=== PATIENT | female | born 1930 | race Caucasian/White ===

== ENCOUNTER 2017-02-23 16:21 | Emergency (ER) | payer MEDICARE, OTHER ==
[~2017-02-23] VITALS: Ht 142.2 cm; Wt 63.5 kg
[~2017-02-23 16:21] MED LIST: ALBUTEROL2.5 MG/0.5 INH; AMOX TR-K CLV 875-12; ATARAX25 MG PO; ATIVAN0.5 MG PO; AUGMENTIN 500500 MG PO; AUGMENTIN 875 M1 TAB PO; B121000 MCG/1 IM; BACTRIM DS 8001 TA1 PO; BENADRYL25 M1 PO; CARDIZEM120 MG PO; CEFTIN250 MG PO; CEFUROXIME AXE250 MG PO; CEFUROXIME250 MG PO; CIPRO250 MG PO; CIPRO500 MG PO; CIPROFLOXACIN500 MG PO; CITRATE OF1.75 GM/30 PO; COUMADIN2 MG; COUMADIN4 MG; DEXTROMETHORPHAN PO; DIGOXIN; DIGOXIN0.125 MG PO; DILTIAZEM120 MG PO; DOXYCYCLINE100 M3 PO; DULCOLAX10 M1 RC; DUONEB 3 MG/3 ML3 M1 INH; DUONEB 3 MG/3 ML3 M1 NEB; EFFER-K20 MEQ PO; FERRATE325 MG PO; FIORICET 325 MG1 TAB PO; FLONASE0.05 MG/AC NS; Fleet Adult Enem1 EA R; HYCODAN/HYDROMET5 ML PO; HYDROCODONE BIT1 T11 PO; JANTOVEN2 MG PO; K-Dur 20MEQ20 MEQ PO; KENALOG 0.1% OI15 GM PO; LASIX40 MG PO; LEVAQUIN500 M1 PO; LEVOFLOXACIN500 MG PO; LIDEX0.05% T; LOPRESSOR50 MG PO; MACROBID100 M1 PO; MIRALAX POWDER255 G1 PO; MIRALAX17 GM/DOSE PO; MIRALAX17 GM/PACK PO; MOM30 ML PO; MUCINEX600 MG PO; Motrin,Rufen400 MG PO; NORCO 325 MG-101 TAB PO; NORCO 5-325 TA1 EACH PO; NYSTATIN CREAM15 GM T; POTASSIUM CHLO20 ME4 PO; POTASSIUM PO; POTASSIUM20 MEQ PO; PT DOESNT KNOW MEDS; SYNTHROID,LEV125 MCG PO; SYNTHROID0.1 MG PO; Synthroid,Lev125 MCG PO; THYROID; TYLENOL325 M1 PO; ULTRAM50 MG PO; VICODIN 5/500 505 MG PO; VICODIN ES 7501 TAB PO
[2017-02-23 16:32] VITALS: BP 118/78
== END 2017-02-23 18:17 | disposition home or self-care (01) ==
LOC: ED 16:21
DX: M17.11 Unilateral primary osteoarthritis, right knee (principal); Z79.899 Other long term (current) drug therapy; Z88.6 Allergy status to analgesic agent

== ENCOUNTER 2017-03-06 14:29 | Inpatient (IN) | payer MEDICARE, OTHER ==
[~2017-03-06] VITALS: Wt 61.2 kg
--- NOTE | ~2017-03-06 | CON ---
[place], [place] REPORT OF CONSULTATION NAME: TULIO KC UNIT #: [id number] ROOM: 530 DOCTOR: ZHANNA LAST MD BIRTHDATE: [birth year] DOS: 03/08/2017 PULMONARY CONSULTATION EVALUATION AND MANAGEMENT CONSULTATION REQUESTED BY: Dr. Thapa. REASON FOR CONSULTATION: For assessment of ongoing acute respiratory complaints as well as pneumonia. HISTORY OF PRESENT ILLNESS: This 86-year-old elderly female patient who has been brought to the Emergency Room and the patient has been noted symptoms of shortness of breath occurring for the past 3 days. The symptoms have been noted gradually progressive with increased fatigue as well. The patient stated symptoms started flu-like symptoms about a week or so and later on noted with symptoms of shortness of breath. She does have symptoms of cough, which has been noted mild and nonproductive. The patient denies symptoms of chest pain. Denies symptoms of hemoptysis. Denies any symptoms of active wheezing. REVIEW OF SYSTEMS: CONSTITUTIONAL: Fatigue and tiredness with low-grade fever noted from home. EYES: Denies any burning, redness, or tenderness. EARS, NOSE, AND THROAT: No sore throat, hoarseness, otalgia, postnasal drainage. CARDIOVASCULAR: Denies anginal pain, edema of the lower extremities or palpitation. GASTROINTESTINAL: Denies symptoms of gastrointestinal symptoms, dysphagia, nausea, vomiting, diarrhea, abdominal pain, hematemesis, melena, or hematochezia. SKIN: Denies any lesions or rashes. GENITOURINARY: Denies dysuria, suprapubic pain, hematuria. CENTRAL NERVOUS SYSTEM: Denies symptoms of diplopia, headache or seizures. Remaining systems were reviewed with the patient, they were noted all negative. PAST MEDICAL HISTORY: 1. Chronic atrial fibrillation, on anticoagulation. 2. Hypothyroidism. 3. Essential hypertension. 4. History of failure to thrive. 5. History of diverticulosis of the colon. SOCIAL HISTORY: The patient stated she is , lives at home and has 2 children. Denies history of tobacco, alcohol or illicit drug use. PAST SURGICAL HISTORY: Essentially noted none. FAMILY HISTORY: Reported for myocardial infarction and cancer. MEDICATIONS: The current administered medications noted use of Cardizem-CD, potassium chloride, MiraLax, Lasix, levothyroxine, Rocephin and Zithromax and [place], [place] REPORT OF CONSULTATION NAME: TULIO KC UNIT #: [id number] ROOM: [facility] DOCTOR: ZHANNA LAST MD BIRTHDATE: [birth year] other p.r.n. medications administration. DRUG ALLERGIES: The patient was noted as allergy to the tramadol. PHYSICAL EXAMINATION: GENERAL: This 86-year-old elderly female noted currently awake and alert without any distress. Height of 5 feet 3 inches, weight 135 pounds. VITAL SIGNS: Show temperature noted normal, respiratory rate ranging between 24-18, heart rate ranges between 74-85, blood pressure 120/85-111/62, pulse oxygen saturation was noted on room air as 94% saturation. HEAD: Atraumatic. Eyes, nonicterus. NECK: Supple. CARDIOVASCULAR: S1, S2 audible. LUNGS: Show mild to moderate decreased breaths are noted in the lungs bilaterally without any wheezing or crackles. ABDOMEN: Soft, flat, nontender. Bowel sounds present. EXTREMITIES: Show no edema, clubbing or cyanosis. CENTRAL NERVOUS SYSTEM: Cranial nerves 2-12 intact. No focal deficits. MUSCULOSKELETAL: Does not show an acute deformities. SKIN: Shows no lesions or rashes. LABORATORY DATA: CBC was done on 03/06/2017 noted normal CBC. PT/PTT on 03/06/2017 was noted as normal. CMP on 03/06/2017 was noted with normal BUN and creatinine. Potassium noted 2.6, which was significantly decreased. CBC, 03/07/2017, WBC count 3.8, remaining CBC normal. BMP on 03/07/2017 noted normal BUN and creatinine. Potassium increased to 3. CBC this morning: WBC count still noted 4.2, remaining CBC normal. BMP that was done this morning showed normal BUN and creatinine. Potassium today noted as mildly decreased as 3.0. The chest x-ray that was done in the Emergency Room, 1 view shows patchy area of infiltration, which appeared to be very faint in the right upper lung would be considered. Remaining lungs were noted essentially grossly clear. IMPRESSION: 1. The patient will be currently admitted to the hospital, suspected acute bacterial pneumonia, right upper lung with the addition of diagnosis to be considered as no pneumonia because of the patient's current infiltration as well. 2. Leukopenia, which has been noted consistent, may be related to current acute illness including possibility of viral syndrome would be considered. 3. Recent flu-like symptoms as well suggestive of viral infection as well. PLAN OF TREATMENT: CT scan of the chest has been ordered with IV contrast ____ detail assessment of the lung. Ordered the viral panel for this patient including influenza A and B, nasal washing antigens. Viral panel, nasopharyngeal washing will be obtained. Other supportive therapy, plan and management as in progress will be continued. Usual care. Other supportive therapy, plan of treatment. Thank you for allowing me to participate in the care of this patient. [place], [place] REPORT OF CONSULTATION NAME: TULIO KC UNIT #: [id number] ROOM: [facility] DOCTOR: ZHANNA LAST MD BIRTHDATE: [birth year] ZHANNA HERRERA MD CM:CONSTR:REPORT OF CONSULTATION 1206 03/08/17 1710 interface
--- NOTE | ~2017-03-06 | PR ---
[place], [place] PROGRESS NOTE NAME: TULIO KC UNIT #: [id number] ROOM: 530 DOCTOR: JUVENTINO NOGUERA MD BIRTHDATE: [birth year] DOS: 03/09/2017 SUBJECTIVE: The patient is alert, oriented, continues to feel better. OBJECTIVE: VITAL SIGNS: Blood pressure 130/88, heart rate of 60 beats per minute, afebrile. GENERAL: Generalized weakness. HEENT AND NECK: Exam within normal limits. CARDIOVASCULAR SYSTEM: Heart rate is regular in rate and rhythm. S1 and S2 normally audible. LUNGS: Clear to auscultation. ABDOMEN: Soft, nontender. No obvious organomegaly. Bowel sounds are present. EXTREMITIES: Without significant cyanosis or edema. IMPRESSION: 1. The patient adult failure to thrive and generalized weakness, overall improving. 2. Resolving tracheobronchitis with leukopenia, suspected to be secondary to viral etiology. Blood counts to be repeated as an outpatient. 3. A 1.8 cm opacity in the right upper lung, suspicious for slow growing malignancy, to be followed by Dr. Ulloa, the scheduling specialist, who saw her at the hospital. 4. Pneumonia in right upper lung, being treated with antibiotics, which will be continued at home. The patient will be discharged to home tomorrow morning to follow up with her PCP and also Dr. Ulloa as an outpatient. JUVENTINO NOGUERA MD CM:PNTRANS [phone] JUVENTINO NOGUERA MD 03/10/17210 interface
--- NOTE | ~2017-03-06 | PR ---
[place], [place] PROGRESS NOTE NAME: TULIO KC UNIT #: [id number] ROOM: 530 DOCTOR: ZHANNA LAST MD BIRTHDATE: [birth year] DOS: 03/09/2017 PULMONARY FOLLOWUP SUBJECTIVE: She has been noted quite comfortable with reduction of the respiratory complaints. She denies symptoms of chest pain or any abdominal pain. OBJECTIVE: VITAL SIGNS: Recorded shows the temperature noted normal, respiration 20, heart rate 71, blood pressure 134/88. Pulse oxygen saturation noted on room air 98% saturation. HEENT: Showed no acute change. NECK: Supple. CARDIOVASCULAR: S1, S2 is audible. LUNGS: Without any crackle, rhonchi or wheezing. ABDOMEN: Soft, nontender. LABORATORY DATA: CBC today: WBC count 4.4, remaining CBC was normal. BMP was normal. Influenza A and B washing antigens noted negative. The respiratory viral panel was ordered from the nasopharyngeal source which is pending. CT scan of the chest showed 1.8 cm ground glass opacity which has been present in the right upper lobe. IMPRESSION: Resolving tracheobronchitis with leukopenia, most likely viral etiology. A 1.8 cm ground glass opacity was noted in the right upper lung with differential diagnosis of possibility of slow growing malignancy, localized infection and other etiologies would be considered. PLAN OF TREATMENT: The patient could be considered for discharge at this time in the home setting with oral antibiotic. Outpatient followup was discussed with ground glass opacity need to be done for the patient who persists with PET scan and further assessment would be advised accordingly. In the meantime, continue the patient's current therapy, plan of management, care and treatments. [place], [place] PROGRESS NOTE NAME: TULIO KC UNIT #: [id number] ROOM: 530 DOCTOR: ZHANNA LAST MD BIRTHDATE: [birth year] ZHANNA HERRERA MD CM:PNTRANS [id number] ZHANNA WHITNEY MD 03/09/17 1249 interface
--- NOTE | ~2017-03-06 | PR ---
[place], [place] PROGRESS NOTE NAME: TULIO KC UNIT #: [id number] ROOM: 530 DOCTOR: JAVIER WHITNEY MD,ZHANNA BIRTHDATE: [birth year] DOS: 03/10/2017 SUBJECTIVE: She has been noted comfortable at this time without any distress. The coughing has been subsiding gradually. There were no symptoms of chest pain or any abdominal pain. OBJECTIVE: VITAL SIGNS: Showed normal temperature, respiratory rate 20, heart rate 58, blood pressure 126/92. Pulse oxygen saturation noted as 98% on room air. HEENT: Showed no acute change. NECK: Supple. CARDIOVASCULAR: S1, S2 is audible. LUNGS: The patient was noted without any wheezing or crackles. ABDOMEN: Soft, nontender. EXTREMITIES: Shows no edema. LABORATORY DATA: Respiratory luaren, the culture is noted positive for rhinovirus. IMPRESSION: The patient has been noted solitary pulmonary nodule in the patient's right upper lung. The patient with leukopenia with acute viral infection and bronchitis with rhinovirus. PLAN OF TREATMENT: The patient will be discharged home on oral medication whenever desired. No intervention. ____ rhinovirus as this has not been able to be treated with any antibiotic therapy. Supportive care to be continued. ZHANNA HERRERA MD CM:PNTRANS [id number] ZHANNA WHITNEY MD 03/10/17 1205 interface
--- NOTE | ~2017-03-06 | PR ---
[place], [place] PROGRESS NOTE NAME: TULIO KC UNIT #: [id number] ROOM: 530 DOCTOR: JUVENTINO NOGUERA MD BIRTHDATE: [birth year] DOS: 03/08/2017 SUBJECTIVE: The patient is starting to feel better with treatment. OBJECTIVE: VITAL SIGNS: Blood pressure 120/89, heart rate 74 beats per minute, breathing 20 times per minute, temperature 98 degrees Fahrenheit. GENERAL APPEARANCE: The patient is alert and oriented x 3, in no visible distress. Has generalized weakness. HEENT AND NECK: Exam within normal limits. CARDIOVASCULAR SYSTEM: Heart rate is regular in rate and rhythm. S1 and S2 normally audible. LUNGS: Clear to auscultation. ABDOMEN: Soft, nontender. No obvious organomegaly. Bowel sounds are present. EXTREMITIES: Without significant cyanosis or edema. IMPRESSION: 1. The patient with right upper lung pneumonia and consolidation for which Dr. Ulloa has been consulted and she is being treated with antibiotics. The patient is feeling better. CT of the chest showed ground glass opacity in inner segment of the right upper lung measuring 1.8 cm concerning for malignancy. 2. Right upper lung mass, possibility of malignancy. Dr. Ulloa to follow. 3. Old age, generalized weakness, adult failure to thrive. We are taking bedsore precautions and fall precautions. 4. Benign essential hypertension with controlled blood pressures with treatment. 5. Hypothyroidism. The patient kept on thyroid supplements. 6. Persistent hypokalemia for which the patient is being treated with extra potassium supplements. JUVENTINO NOGUERA MD CM:PNTRANS [id number] JUVENTINO NOGUERA MD 03/09/17 0028 interface
--- NOTE | ~2017-03-06 | DS ---
[place], [place] DISCHARGE SUMMARY NAME: TULIO KC [facility] #: [id number] UNIT #: [id number] ROOM: 530 DOCTOR: JUVENTINO NOGUERA MD BIRTHDATE: [birth year] DOS: 03/10/2017 DISCHARGE DIAGNOSES: 1. The patient with tracheobronchitis and leukopenia, possibly from viral etiology. 2. Right upper lung mass, measuring 1.8 cm, to be followed by Dr. Ulloa, suspicious for slow growing malignancy. 3. Right upper lung pneumonia, treated with antibiotics. 4. Chronic atrial fibrillation. The patient is not a good candidate for anticoagulation. 5. Hypothyroidism. 6. Benign essential hypertension. 7. Old age and failure to thrive. 8. Diverticulosis of the colon. HOSPITAL COURSE: 1. The patient presented to the Emergency Department with a 3-day complaints of increasing shortness of breath, slight fever and flu-like symptoms. The patient was found to have a suspicious mass in the right upper lung measuring 1.[address] Ulloa, the sales representative printing supplies was consulted and he has cleared the patient for discharge after treatment with antibiotics because she is breathing very well. Dr. Ulloa will continue to follow her and see if this mass-like infiltrate resolves with antibiotics or if needs further investigation. Because of the patient's age and overall poor health, the patient is not a very good candidate for any major treatment. 2. Chronic atrial fibrillation with controlled heart rates. The patient is not anticoagulated because she is not a good candidate for anticoagulation related to recurrent falls and generalized disability. Dr. Sheriff Sanchez is her PCP. 3. Old age, generalized weakness and adult failure to thrive. The patient worked with physical therapy. 4. Benign essential hypertension. Blood pressure has been monitored and treated. 5. Hypothyroidism. The patient was continued on thyroid supplements. 6. Hypokalemia, was treated with extra potassium supplements. 7. Neutropenia, probably secondary to viral infection. Blood counts need to be repeated as an outpatient, white cell count of 4400. LABORATORY DATA: Normal serum electrolytes except for potassium of 3.3 for which the patient was given extra potassium. Blood cultures were negative. DISCHARGE MANAGEMENT: Diltiazem CD 120 mg a day, potassium bicarbonate 25 mEq daily, MiraLax 17 grams a day, furosemide 40 mg a day, levothyroxine 125 mcg a day, Augmentin 875 mg twice a day for a week. Follow up in the office with Dr. Sanchez next week. Vicodin p.r.n., lorazepam 0.25 mg at bedtime. [place], [place] DISCHARGE SUMMARY NAME: TULIO KC UNIT #: [id number] ROOM: [facility] DOCTOR: JUVENTINO NOGUERA MD BIRTHDATE: [birth year] JUVENTINO NOGUERA MD CM:ROB [id number] 1302 JUVENTINO NOGUERA MD 03/10/17 1301 interface
--- NOTE | ~2017-03-06 | WRIGHTHP ---
[place], [place] PATIENT HISTORY AND PHYSICAL EXAM NAME: TULIO KC [facility] #: [id number] UNIT #: [id number] ROOM: 530 DOCTOR: JUVENTINO NOGUERA MD BIRTHDATE: [birth year] DOS: 03/07/2017 HISTORY OF PRESENT ILLNESS: 1. The patient is an 86-year-old female with a past medical history of chronic atrial fibrillation. The patient is not a good candidate for anticoagulation. 2. Hypothyroidism. 3. Benign essential hypertension. 4. Old age and failure to thrive. 5. History of diverticulosis of colon. The patient presented to the Emergency Department with more than 3-day complaints of increasing shortness of breath, feeling weaker and slight fever. The patient had cold and flu-like symptoms last week. The patient had some decreased appetite and slight cough. No chest pains. The patient was found to have pneumonia and hypokalemia and recommended for admission for further management. After admission, the patient is starting to feel somewhat better. REVIEW OF SYSTEMS: LUNGS: Increasing shortness of breath, slight cough. CARDIOVASCULAR SYSTEM: No chest pains or palpitations. GASTROINTESTINAL: No nausea, vomiting, diarrhea, constipation. FAMILY HISTORY: Noncontributory. HOME MEDICATIONS: Diltiazem, potassium, MiraLax, furosemide, levothyroxine, lorazepam, and Vicodin. ALLERGIES: TRAMADOL. PHYSICAL EXAMINATION: GENERAL: Alert and oriented x 3. Generally weak, but in no visible distress. Generalized weakness. VITAL SIGNS: Blood pressure 103/78, heart rate 67 beats per minute, breathing 18 times per minute, temperature of 98.1 degrees Fahrenheit. HEENT AND NECK: Extraocular movements are intact. Sclerae are anicteric. Oral mucosa is moist and clean. No obvious facial weakness. Neck is supple without any lymphadenopathy. No thyromegaly. No JVD. No carotid arterial bruits. LUNGS: Clear to auscultation. No wheezing. No rhonchi. Decreased breath sounds at the bases. CARDIOVASCULAR SYSTEM: Heart rate is regular in rate and rhythm. S1 and S2 normally audible. No significant murmur or any other abnormal cardiac sounds. ABDOMEN: Soft, nontender. No obvious organomegaly. Bowel sounds are present. No obvious herniation. EXTREMITIES: Without significant cyanosis or edema. Warm to touch. CENTRAL NERVOUS SYSTEM: Alert and oriented x 3. Cranial nerves II-XII are intact. Speech is normal. The patient is able to move all extremities. Normal muscle strength. Deep tendon reflexes are equal on both sides. Plantars were downgoing. LABORATORY DATA: Normal serum electrolytes except for potassium level of 3. [place], [place] PATIENT HISTORY AND PHYSICAL EXAM NAME: TULIO KC UNIT #: [id number] ROOM: [facility] DOCTOR: JUVENTINO NOGUERA MD BIRTHDATE: [birth year] Normal CBC except for slight left shift. Chest x-ray showing a right apical opacity and pneumonia. IMPRESSION: 1. The patient presenting with right upper lung pneumonia. We will also get a CT scan of the chest for further evaluation and consult international exchange coordinator, Dr. Ulloa. The patient has shortness of breath and weakness, so she was admitted and is being treated with IV antibiotics. 2. Old age, generalized weakness and adult failure to thrive. We are taking bedsore precautions, fall precautions and the patient to work with physical therapy. 3. Benign essential hypertension. We will monitor blood pressures and treat accordingly. 4. Hypothyroidism. I will keep her on thyroid supplements. 5. Hypokalemia, to be treated with extra potassium supplements and followed with serum electrolytes. JUVENTINO NOGUERA MD CM:HISPHYS:PATIENT HISTORY AND PHYSICAL EXAMINATION 06 24 JUVENTINO NOGUERA MD 03/07/17 0317 interface
[2017-03-06 14:37] VITALS: BP 128/84
[2017-03-06 15:52] LABS: BASO % 0.5 % (0.0-1.0); EOS # 0.1 10*3/uL (0.0-0.4); EOS % 1.8 % (1.0-4.0); HEMATOCRIT 45.7 % (37.0-47.0); LYMPH # 0.8 10*3/uL (1.3-4.4); LYMPH % 12.8 % (27.0-41.0); MEAN CELL VOLUME 90.7 fl (81.0-99.0); MEAN CORPUSCULAR HGB 29.8 pg (27.0-31.0); MEAN CORPUSCULAR HGB CONC 32.8 g/dl (33.0-37.0); MEAN PLATELET VOLUME 11.5 fl (9.6-12.3); MONO # 0.2 10*3/uL (0.1-1.0); NEUT # 4.8 10*3/uL (2.3-7.9); NEUT % 80.7 % (47.0-73.0); PLATELET COUNT AUTOMATED 166 10*3/uL (130-400); RED BLOOD COUNT 5.04 10*6/uL (4.10-5.10); RED CELL DISTRI WIDTH 14.5 % (0-14.5)
[2017-03-06 16:03] LABS: PROTHROMBIN TIME 10.8 SECONDS (9.0-12.4)
[2017-03-06 16:07] LABS: ALBUMIN 3.4 gm/dl (3.1-4.5); ALKALINE PHOSPHATASE 81 U/L (45-117); BILIRUBIN, TOTAL 1.6 mg/dl (0.2-1.0); BUN 4 mg/dl (7-24); C-REACTIVE PROTEIN 0.81 MG/DL (0-0.3); CARBON DIOXIDE 28 mmol/L (21-32); CHLORIDE 102 mmol/L (98-107); CKMB 0.7 ng/ml (0.5-3.6); CPK 37 U/L (26-192); EST GLOM FILT AFRICAN AMERICAN > 60 ml/min; GLUCOSE 96 mg/dL (65-99); MAGNESIUM 2.1 mg/dL (1.5-2.1); POTASSIUM 2.7 mmol/L (3.5-5.1); SGOT/AST 10 IU/L (3-35); SGPT/ALT 9 U/L (12-78); SODIUM 142 mmol/L (136-145); TOTAL PROTEIN 7.2 gm/dL (6.4-8.2)
[2017-03-06 16:10] LABS: TROPONIN I < 0.015 ng/ml (<0.045)
[2017-03-06 20:00] VITALS: BP 132/80
[2017-03-07] VITALS: BP 114/76
[2017-03-07 04:00] VITALS: BP 120/78
[2017-03-07 06:01] LABS: BASO % 0.5 % (0.0-1.0); EOS # 0.2 10*3/uL (0.0-0.4); EOS % 4.5 % (1.0-4.0); LYMPH # 1.1 10*3/uL (1.3-4.4); LYMPH % 27.7 % (27.0-41.0); MEAN CELL VOLUME 90.8 fl (81.0-99.0); MEAN CORPUSCULAR HGB 28.9 pg (27.0-31.0); MEAN CORPUSCULAR HGB CONC 31.9 g/dl (33.0-37.0); MEAN PLATELET VOLUME 10.5 fl (9.6-12.3); MONO # 0.3 10*3/uL (0.1-1.0); MONO % 8.7 % (3.0-9.0); NEUT # 2.2 10*3/uL (2.3-7.9); NEUT % 58.3 % (47.0-73.0); PLATELET COUNT AUTOMATED 162 10*3/uL (130-400); RED BLOOD COUNT 4.25 10*6/uL (4.10-5.10); RED CELL DISTRI WIDTH 14.2 % (0-14.5); WHITE BLOOD COUNT 3.8 10*3/uL (4.8-10.8)
[2017-03-07 06:13] LABS: HEMATOCRIT 38.6 % (37.0-47.0); HEMOGLOBIN 12.3 g/dl (12.0-16.0)
[2017-03-07 06:22] LABS: BUN 7 mg/dl (7-24); CARBON DIOXIDE 31 mmol/L (21-32); CHLORIDE 104 mmol/L (98-107); EST GLOM FILT AFRICAN AMERICAN > 60 ml/min; GLUCOSE 82 mg/dL (65-99); SODIUM 142 mmol/L (136-145)
[2017-03-07 08:00] VITALS: BP 120/80
[2017-03-07 16:00] VITALS: BP 103/78
[2017-03-08] VITALS: BP 111/62
[2017-03-08 07:35] LABS: BASO % 0.7 % (0.0-1.0); EOS # 0.1 10*3/uL (0.0-0.4); EOS % 3.4 % (1.0-4.0); HEMOGLOBIN 12.9 g/dl (12.0-16.0); LYMPH # 1.5 10*3/uL (1.3-4.4); LYMPH % 35.3 % (27.0-41.0); MEAN CELL VOLUME 90.3 fl (81.0-99.0); MEAN CORPUSCULAR HGB 29.1 pg (27.0-31.0); MEAN CORPUSCULAR HGB CONC 32.3 g/dl (33.0-37.0); MEAN PLATELET VOLUME 10.7 fl (9.6-12.3); MONO # 0.3 10*3/uL (0.1-1.0); MONO % 6.5 % (3.0-9.0); NEUT # 2.3 10*3/uL (2.3-7.9); NEUT % 53.9 % (47.0-73.0); PLATELET COUNT AUTOMATED 167 10*3/uL (130-400); RED BLOOD COUNT 4.43 10*6/uL (4.10-5.10); RED CELL DISTRI WIDTH 14.4 % (0-14.5); WHITE BLOOD COUNT 4.2 10*3/uL (4.8-10.8)
[2017-03-08 07:48] LABS: BUN 10 mg/dl (7-24); CARBON DIOXIDE 27 mmol/L (21-32); CHLORIDE 106 mmol/L (98-107); EST GLOM FILT AFRICAN AMERICAN > 60 ml/min; GLUCOSE 91 mg/dL (65-99); SODIUM 143 mmol/L (136-145)
[2017-03-08 08:00] VITALS: BP 120/89
[2017-03-08 16:00] VITALS: BP 95/53
[2017-03-08 20:43] VITALS: BP 104/60
[2017-03-09] VITALS: BP 107/72
[2017-03-09 04:00] VITALS: BP 112/84
[2017-03-09 06:50] LABS: BASO % 0.7 % (0.0-1.0); EOS # 0.1 10*3/uL (0.0-0.4); HEMATOCRIT 41.1 % (37.0-47.0); HEMOGLOBIN 13.3 g/dl (12.0-16.0); LYMPH # 1.3 10*3/uL (1.3-4.4); LYMPH % 28.9 % (27.0-41.0); MEAN CELL VOLUME 91.7 fl (81.0-99.0); MEAN CORPUSCULAR HGB 29.7 pg (27.0-31.0); MEAN CORPUSCULAR HGB CONC 32.4 g/dl (33.0-37.0); MEAN PLATELET VOLUME 10.5 fl (9.6-12.3); MONO # 0.3 10*3/uL (0.1-1.0); MONO % 5.7 % (3.0-9.0); NEUT # 2.7 10*3/uL (2.3-7.9); NEUT % 61.2 % (47.0-73.0); PLATELET COUNT AUTOMATED 195 10*3/uL (130-400); RED BLOOD COUNT 4.48 10*6/uL (4.10-5.10); RED CELL DISTRI WIDTH 14.4 % (0-14.5); WHITE BLOOD COUNT 4.4 10*3/uL (4.8-10.8)
[2017-03-09 07:24] LABS: BUN 11 mg/dl (7-24); CARBON DIOXIDE 29 mmol/L (21-32); CHLORIDE 105 mmol/L (98-107); EST GLOM FILT AFRICAN AMERICAN > 60 ml/min; GLUCOSE 91 mg/dL (65-99); POTASSIUM 3.3 mmol/L (3.5-5.1); SODIUM 145 mmol/L (136-145)
[2017-03-09 08:41] VITALS: BP 134/88
[2017-03-09 16:00] VITALS: BP 95/60
[2017-03-10] VITALS: BP 111/82
[2017-03-10 00:03] LABS: INFLUENZA B Negative (Negative); METAPNEUMOVIRUS Negative (Negative)
[2017-03-10 08:00] VITALS: BP 126/92
[2017-03-10] MEDS ORDERED: AUGMENTIN 875-875 MG PO (10:19)
== END 2017-03-10 10:59 | disposition home or self-care (01) | DRG 194 ==
LOC: ED 14:29 → 5E 16:36 → EDHOLD 16:36 → 5E 16:46
PROVIDERS: Emergency Medicine; Internal Medicine; Internal Medicine Critical Care Medicine
DX: J18.1 Lobar pneumonia, unspecified organism (principal); C34.11 Malignant neoplasm of upper lobe, right bronchus or lung; I48.2 Chronic atrial fibrillation; E44.1 Mild protein-calorie malnutrition; D72.819 Decreased white blood cell count, unspecified; I10 Essential (primary) hypertension; E87.6 Hypokalemia; J40 Bronchitis, not specified as acute or chronic; W19.XXXA Unspecified fall, initial encounter; Z66 Do not resuscitate; Z51.5 Encounter for palliative care; R91.8 Other nonspecific abnormal finding of lung field; B34.8 Other viral infections of unspecified site; E03.9 Hypothyroidism, unspecified; R62.7 Adult failure to thrive; K57.30 Diverticulosis of large intestine without perforation or abscess without bleeding; Z79.899 Other long term (current) drug therapy; Z88.6 Allergy status to analgesic agent; Y93.89 Activity, other specified; Y92.89 Other specified places as the place of occurrence of the external cause; Y99.8 Other external cause status

== ENCOUNTER 2017-04-17 17:16 | Emergency (ER) | payer MEDICARE ==
[~2017-04-17] VITALS: Ht 144.7 cm; Wt 63.5 kg
[~2017-04-17 17:16] MED LIST changes: +AUGMENTIN 875-875 MG PO
[2017-04-17 17:22] VITALS: BP 140/86
[2017-04-17 19:22] LABS: BILIRUBIN NEGATIVE (NEGATIVE); BLOOD 1+ (NEGATIVE); CLARITY SL CLOUDY (CLEAR); COLOR YELLOW (YELLOW); GLUCOSE NEGATIVE (NEGATIVE); KETONE NEGATIVE (NEGATIVE); LEUKO ESTERASE 3+ (NEGATIVE); NITRITE POSITIVE (NEGATIVE); PROTEIN NEGATIVE (NEGATIVE); SPECIFIC GRAVITY <= 1.005 (1.005-1.030)
[2017-04-17 19:29] LABS: BACTERIA 3+; URINE REFLEX COMMENT YES (NO); WBC 21-30 wbc/hpf (0-5)
[2017-04-17] MEDS ORDERED: CIPRO500 MG PO (19:59)
[2017-04-17] MEDS ORDERED: PYRIDIUM100 MG PO (19:59)
== END 2017-04-17 20:14 | disposition home or self-care (01) ==
LOC: ED 17:16
PROVIDERS: Nurse Practitioner Family
DX: S60.031A Contusion of right middle finger without damage to nail, initial encounter (principal); N30.01 Acute cystitis with hematuria; Z88.6 Allergy status to analgesic agent; Z79.899 Other long term (current) drug therapy; X58.XXXA Exposure to other specified factors, initial encounter; Y93.9 Activity, unspecified; Y92.9 Unspecified place or not applicable; Y99.9 Unspecified external cause status

== ENCOUNTER 2017-05-30 11:32 | Inpatient (IN) | payer MEDICARE ==
--- NOTE | ~2017-05-30 | WRIGHTHP ---
[place], [place] PATIENT HISTORY AND PHYSICAL EXAM [id number] UNIT #: [id number] ROOM: 531 DOCTOR: JUVENTINO NOGUERA MD BIRTHDATE: [birth year] DOS: 05/30/2017 HISTORY OF PRESENT ILLNESS: 1. The patient is an 86-year-old female with a past medical history of right upper lung mass suspicious of malignancy and slowly growing, chronic atrial fibrillation. The patient is not a good candidate for anticoagulation. 2. Hypothyroidism. 3. Benign essential hypertension. 4. Old age and failure to thrive. 5. History of diverticulosis of the colon. The patient presented to the emergency department with increasing lower back pains and was found to have urinary tract infection. The patient's family who take care of her at home said that she needs custodial placement because of her advanced disability. No chest pain, no increasing shortness of breath. The patient had been having increasing lower back pains and burning in the urine. There were a couple of days, feeling even weaker. SYSTEMS REVIEW: LUNGS: No increasing shortness of breath or wheezing. GASTROINTESTINAL: No nausea, vomiting, diarrhea, or constipation. CARDIOVASCULAR: No chest pains or palpitations. FAMILY HISTORY: Noncontributory. MEDICATIONS: Potassium chloride, MiraLax, furosemide, levothyroxine, lorazepam, and Vicodin. PHYSICAL EXAMINATION: GENERAL APPEARANCE: The patient is alert and oriented x 3, in no visible distress, very weak. VITAL SIGNS: Blood pressure 134/92, heart rate 83 beats per minute, breathing 18 times per minute, temperature of 98.4 degrees Fahrenheit. HEENT AND NECK: Extraocular movements are intact. Sclerae are anicteric. Oral mucosa is moist and clean. No obvious facial weakness. Neck is supple without any lymphadenopathy. No thyromegaly. No JVD. No carotid arterial bruits. LUNGS: Clear to auscultation. No wheezing. No rhonchi. CARDIOVASCULAR SYSTEM: Heart rate is regular in rate and rhythm. S1 and S2 normally audible. No significant murmur or any other abnormal cardiac sounds. ABDOMEN: Soft, nontender. No obvious organomegaly. Bowel sounds are present. No obvious herniation. EXTREMITIES: Without significant cyanosis or edema. Warm to touch. CENTRAL NERVOUS SYSTEM: Alert and oriented x 3. Cranial nerves II-XII are intact. Speech is normal. The patient is able to move all extremities. Normal muscle strength. Deep tendon reflexes are equal on both sides. Plantars were downgoing. Otherwise, lab data, x-rays of the lumbar spine without any acute abnormality or x-ray of the thoracic spine without any acute abnormality. CT of the head without any hemorrhage. Normal serum electrolytes, except for potassium level [place], [place] PATIENT HISTORY AND PHYSICAL EXAM NAME: TULIO KC UNIT #: [id number] ROOM: 531 DOCTOR: JUVENTINO NOGUERA MD BIRTHDATE: [birth year] low at 3.1. No leukocytosis. IMPRESSION: 1. The patient with urinary tract infection and cystitis, to be treated with Rocephin and white cell counts to be repeated. The patient had symptoms of urinary tract infection with urinary burning and lower back pains. 2. Advanced disability and old age and failure to thrive. The patient recommended jail facility placement and pediatric social worker and case management have been consulted. 3. Hypothyroidism. The patient remains on levothyroxine. 4. Chronic atrial fibrillation with controlled heart rates. The patient is not a good candidate for anticoagulation. 5. 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 The patient is not a good candidate for intervention. Dr. Ulloa, the typo machine operator has evaluated her in the past. 6. Advanced disability. I will start the patient on bedsore precautions every 2-hour turning and also physical therapy. JUVENTINO NOGUERA MD CM:HISPHYS:PATIENT HISTORY AND PHYSICAL EXAMINATION 1701 0005 JUVENTINO NOGUERA MD 05/31/17 0005 interface
--- NOTE | ~2017-05-30 | EKG ---
[place], [place] ELECTROCARDIOGRAM REPORT NAME: TULIO KC UNIT #: [id number] ROOM: 531 DOCTOR: JAVIER WHITNEY MD,ZHANNA BIRTHDATE: [birth year] DOS: 05/31/2017 ELECTROCARDIOGRAM The electrocardiogram done 05/30/2017 at 1241 p.m. Underlying rhythm was noted as atrial fibrillation with heart rate to 83 beats per minute. Some APC for the patient was noted with electrocardiogram with nonspecific ST-T changes. ZHANNA HERRERA MD CM:EKGRPT:ELECTROCARDIOGRAM REPORT 1213 1239 ZHANNA WHITNEY MD
--- NOTE | ~2017-05-30 | DS ---
[place], [place] DISCHARGE SUMMARY [id number] UN[facility] #: [id number] ROOM: 531 DOCTOR: JUVENTINO NOGUERA MD BIRTHDATE: [birth year] DOS: 06/02/2017 DISCHARGE DIAGNOSES: 1. The patient with urinary tract infection and cystitis with urine culture growing Escherichia coli to be treated with Augmentin. 2. Old age, generalized weakness and disability. The patient to work with physical therapy. 3. Hypothyroidism. 4. Chronic atrial fibrillation. The patient is not a good candidate for anticoagulation. 5. 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 Ulloa, the reliability specialist in the past. 6. Advanced disability and adult failure to thrive. 7. History of diverticulosis of the colon. HISTORY AND HOSPITAL COURSE: 1. The patient admitted with increased weakness, difficulty with ambulation, lower back pains and she was found to have urinary tract infection and cystitis. The patient grew E. coli in the urine cultures which were treated with antibiotics and she will be continued on Augmentin at residential facility where she can be discharged. 2. Hypothyroidism, treated with thyroid supplements. 3. Adult failure to thrive and generalized weakness. The patient is working with physical therapy. 4. Chronic constipation, treated with MiraLax. 5. Generalized anxiety disorder and chronic lower back pains treated with lorazepam and Vicodin, which helped the function better. Now, she will be treated with ibuprofen and Tylenol as needed. 6. Right upper lung mass evaluated by Dr. Ulloa. Apparently, the patient is not a good candidate for further treatment and she does not want any more treatment for this. LABORATORY DATA: Urine culture is positive for resistant E. coli, which is sensitive to Augmentin, normal serum electrolytes and CBC. DISCHARGE MANAGEMENT: Augmentin 875 mg twice a day for 1 week, potassium bicarbonate 25 mEq daily, MiraLax 17 grams daily, furosemide 40 mg daily, Cardizem CD 120 mg daily, levothyroxine 125 mcg daily, lorazepam 0.5 mg at bedtime p.r.n., Vicodin 5/325 mg b.i.d. p.r.n. for pain. Give Tylenol 1000 mg every 8 hours and ibuprofen 600 mg every 8 hours p.r.n. for pain, oxygen titrate to keep a pulse ox 90-96% as needed p.r.n. and DuoNeb t.i.d. p.r.n. for shortness of breath. Consult physical therapy. [place], [place] DISCHARGE SUMMARY NAME: TULIO KC UNIT #: [id number] ROOM: 531 DOCTOR: JUVENTINO NOGUERA MD BIRTHDATE: [birth year] JUVENTINO NOGUERA MD CM:ROB [id number] JUVENTINO NOGUERA MD 06/01/17 1108 interface
--- NOTE | ~2017-05-30 | PR ---
[place], [place] PROGRESS NOTE NAME: TULIO KC UNIT #: [id number] ROOM: 531 DOCTOR: JUVENTINO NOGUERA MD BIRTHDATE: [birth year] DOS: 05/30/2017 SUBJECTIVE: The patient is breathing better and waiting to complete 3 days to go to longterm facility for continued treatment. OBJECTIVE: GENERAL APPEARANCE: The patient is alert and oriented x 3, in no visible distress, generalized weakness. VITAL SIGNS: Blood pressure 112/76, heart rate of 79 beats per minute, breathing 20 times per minute, temperature 98.2 degrees Fahrenheit. HEENT AND NECK: Exam within normal limits. CARDIOVASCULAR SYSTEM: Heart rate is regular in rate and rhythm. S1 and S2 normally audible. LUNGS: Clear to auscultation. ABDOMEN: Soft, nontender. No obvious organomegaly. Bowel sounds are present. EXTREMITIES: Without significant cyanosis or edema. IMPRESSION: 1. Urinary tract infection and cystitis with urine cultures growing heavy gram-negative bacilli and she had lower back pains related to this which are improving. No leukocytosis. 2. Old age, generalized weakness and disability and ambulatory dysfunction. The patient waiting for longterm facility transfer. 3. Hypothyroidism, ____ with levothyroxine. 4. Chronic atrial fibrillation with controlled heart rates. The patient is not a good candidate for anticoagulation. 5. 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 Ulloa, the cryptologic support specialist. 6. Advanced disability and failure to thrive. We are taking bedsore precautions. JUVENTINO NOGUERA MD CM:PNTRANS 99 01 JUVENTINO NOGUERA MD [id number]/31/[id number] interface
[~2017-05-30 11:32] MED LIST changes: +PYRIDIUM100 MG PO
[2017-05-30 11:45] VITALS: BP 102/72
[2017-05-30 12:33] LABS: BASO # 0.1 10*3/uL (0.0-0.1); EOS # 0.1 10*3/uL (0.0-0.4); EOS % 1.4 % (1.0-4.0); HEMATOCRIT 43.2 % (37.0-47.0); HEMOGLOBIN 14.2 g/dl (12.0-16.0); LYMPH # 1.1 10*3/uL (1.3-4.4); LYMPH % 20.9 % (27.0-41.0); MEAN CELL VOLUME 91.7 fl (81.0-99.0); MEAN CORPUSCULAR HGB 30.1 pg (27.0-31.0); MEAN CORPUSCULAR HGB CONC 32.9 g/dl (33.0-37.0); MEAN PLATELET VOLUME 9.9 fl (9.6-12.3); MONO # 0.3 10*3/uL (0.1-1.0); MONO % 5.2 % (3.0-9.0); NEUT # 3.7 10*3/uL (2.3-7.9); NEUT % 71.1 % (47.0-73.0); PLATELET COUNT AUTOMATED 224 10*3/uL (130-400); RED BLOOD COUNT 4.71 10*6/uL (4.10-5.10); RED CELL DISTRI WIDTH 13.9 % (0-14.5); WHITE BLOOD COUNT 5.2 10*3/uL (4.8-10.8)
[2017-05-30 12:48] LABS: ALBUMIN 3.2 gm/dl (3.1-4.5); ALKALINE PHOSPHATASE 73 U/L (45-117); BUN 7 mg/dl (7-24); CHLORIDE 104 mmol/L (98-107); CPK 38 U/L (26-192); CREATININE 0.68 mg/dL (0.55-1.02); MAGNESIUM 2.4 mg/dL (1.5-2.1); POTASSIUM 3.1 mmol/L (3.5-5.1); SGOT/AST 9 IU/L (3-35); SGPT/ALT 10 U/L (12-78); SODIUM 141 mmol/L (136-145); TOTAL PROTEIN 6.9 gm/dL (6.4-8.2)
[2017-05-30 12:52] LABS: CKMB < 0.5 ng/ml (0.5-3.6); TROPONIN I < 0.015 ng/ml (<0.045)
[2017-05-30 13:07] LABS: BILIRUBIN NEGATIVE (NEGATIVE); BLOOD NEGATIVE (NEGATIVE); CLARITY CLOUDY (CLEAR); COLOR YELLOW (YELLOW); GLUCOSE NEGATIVE (NEGATIVE); KETONE NEGATIVE (NEGATIVE); LEUKO ESTERASE 3+ (NEGATIVE); NITRITE NEGATIVE (NEGATIVE); PH 8.5 (5.0-9.0)
[2017-05-30 13:31] LABS: BACTERIA 3+; WBC 16-20 wbc/hpf (0-5)
[2017-05-30 14:30] VITALS: BP 134/92
[2017-05-30 14:50] VITALS: BP 134/92
[2017-05-30 16:00] VITALS: BP 139/94
[2017-05-30 20:00] VITALS: BP 107/61
[2017-05-31] VITALS: BP 139/87
[2017-05-31 05:58] LABS: BASO % 0.7 % (0.0-1.0); EOS # 0.1 10*3/uL (0.0-0.4); EOS % 1.5 % (1.0-4.0); HEMATOCRIT 40.5 % (37.0-47.0); LYMPH # 1.5 10*3/uL (1.3-4.4); LYMPH % 25.9 % (27.0-41.0); MEAN CELL VOLUME 92.3 fl (81.0-99.0); MEAN CORPUSCULAR HGB 29.6 pg (27.0-31.0); MEAN CORPUSCULAR HGB CONC 32.1 g/dl (33.0-37.0); MEAN PLATELET VOLUME 10.3 fl (9.6-12.3); MONO # 0.4 10*3/uL (0.1-1.0); MONO % 6.7 % (3.0-9.0); NEUT # 3.8 10*3/uL (2.3-7.9); NEUT % 64.9 % (47.0-73.0); PLATELET COUNT AUTOMATED 205 10*3/uL (130-400); RED BLOOD COUNT 4.39 10*6/uL (4.10-5.10); RED CELL DISTRI WIDTH 13.9 % (0-14.5); WHITE BLOOD COUNT 5.8 10*3/uL (4.8-10.8)
[2017-05-31 06:30] LABS: BUN 10 mg/dl (7-24); CHLORIDE 106 mmol/L (98-107); CREATININE 0.72 mg/dL (0.55-1.02); POTASSIUM 3.6 mmol/L (3.5-5.1); SODIUM 143 mmol/L (136-145)
[2017-05-31 08:00] VITALS: BP 112/76; BP 139/87
[2017-05-31 16:00] VITALS: BP 102/62; BP 120/75
[2017-05-31 20:00] VITALS: BP 91/51
[2017-06-01] VITALS: BP 90/51
[2017-06-01 08:00] VITALS: BP 98/70
[2017-06-01] MEDS ORDERED: AUGMENTIN 875-875 MG PO (09:22)
[2017-06-01 12:00] VITALS: BP 100/67
[2017-06-01 16:00] VITALS: BP 107/66; BP 156/83
[2017-06-02] VITALS: BP 128/79
[2017-06-02 08:00] VITALS: BP 100/68
== END 2017-06-02 11:22 | disposition other institution (70) | DRG 690 ==
LOC: ED 11:32 → 5E 13:53 → EDHOLD 13:53 → 5E 14:01
PROVIDERS: Internal Medicine; ADMIT Internal Medicine
DX: N30.90 Cystitis, unspecified without hematuria (principal); I48.2 Chronic atrial fibrillation; R41.81 Age-related cognitive decline; B96.20 Unspecified Escherichia coli [E. coli] as the cause of diseases classified elsewhere; I10 Essential (primary) hypertension; K59.09 Other constipation; F41.1 Generalized anxiety disorder; M54.5 Low back pain; G89.29 Other chronic pain; E03.9 Hypothyroidism, unspecified; R62.7 Adult failure to thrive; Z88.8 Allergy status to other drugs, medicaments and biological substances; Z82.49 Family history of ischemic heart disease and other diseases of the circulatory system; Z80.8 Family history of malignant neoplasm of other organs or systems; Z87.19 Personal history of other diseases of the digestive system; R91.8 Other nonspecific abnormal finding of lung field

== ENCOUNTER → 2017-07-21 | Outpatient (CLI) | payer MEDICARE, OTHER | END | disposition home or self-care (01) | LOC: CT 09:49 | DX: N18.4 Chronic kidney disease, stage 4 (severe) (principal); N81.10 Cystocele, unspecified; K80.20 Calculus of gallbladder without cholecystitis without obstruction; K76.0 Fatty (change of) liver, not elsewhere classified; K57.30 Diverticulosis of large intestine without perforation or abscess without bleeding; N13.30 Unspecified hydronephrosis; I70.0 Atherosclerosis of aorta ==